=== PATIENT | female | born 1950 | race Caucasian/White ===

== ENCOUNTER → 2020-02-08 11:10 | Outpatient (CLI) | payer OTHER, SELFPAY ==
--- NOTE | ~2020-02-08 | XR_ITS ---
EXAMINATION: XR knee LT 2V DATE: 02/08/2020 11:23 INDICATION: Left knee pain. TECHNIQUE: 2 views of left knee were obtained. COMPARISON: None. FINDINGS: Bone alignment is normal. No fracture. There is moderate osteoarthritis of medial and sharma lofemoral compartments and mild osteoarthritis of lateral compartment. No knee joint effusion. IMPRESSION: 1. Moderate left knee osteoarthritis. Reviewed, dictated and finalized at location A.
== END ==
PROVIDERS: PCP Internal Medicine; Visit Provider Internal Medicine
DX: M17.12 Unilateral primary osteoarthritis, left knee (principal)
CPT/HCPCS: 73560

== ENCOUNTER 2020-03-14 08:19 | Outpatient (CLI) | payer OTHER, SELFPAY ==
[2020-03-14 08:41] LABS: Basophils Percent Auto 0.6 % (0.2-1.2); Eosinophils Absolute Auto 0.2 K/mm3 (0-0.3); Eosinophils Percent Auto 3.2 % (0-4.4); Hematocrit 42.6 % (37.0-47.0); Hemoglobin 13.8 g/dL (12.0-15.0); Immature Granulocyte Absolute 0.01 K/mm3 (0.00-0.031); Immature Granulocyte Percent A 0.2 % (0-0.5); Lymphocytes Percent Auto 27.9 % (18.3-44.2); Mean Corpuscular HGB Conc 32.4 g/dl (32-36); Mean Corpuscular Hemoglobin 28.4 pg (26-34); Mean Corpuscular Volume 87.7 fl (80-100); Mean Platelet Volume 10.3 fl (7.4-10.4); Monocytes Absolute Auto 0.4 K/mm3 (0.1-0.6); Neutrophils Percent Auto 60.1 % (45.5-73.1); Platelet Count Result 185 k/mm3 (150-375); Red Blood Count 4.86 M/mm3 (4.2-5.4); Red Cell Distribution Width 13.2 % (11.5-14.5)
[2020-03-14 08:55] LABS: Alanine Aminotransferase 22 U/L (4-35); Albumin Level 4.1 g/dL (3.5-5.1); Alkaline Phosphatase 70 U/L (38-126); Aspartate Amino Transferase 27 U/L (14-36); Bilirubin,Total 0.2 mg/dL (0.2-1.3); Blood Urea Nitrogen 32 mg/dL (7-17); Calcium 9.3 mg/dL (8.4-10.2); Carbon Dioxide 33 mmol/L (22-30); Chloride 102 mmol/L (98-107); Cholesterol 191 mg/dL (0-200); Estimated Glomerular Filt Rate 49; Glucose 95 mg/dL (65-105); HDL Direct 53 mg/dL; Potassium 3.9 mmol/L (3.4-5.0); Sodium 141 mmol/L (137-145); Triglycerides 66 mg/dL (<150)
[2020-03-14 09:06] LABS: LDL Cholesterol Direct 103 mg/dL
[2020-03-14 09:42] LABS: Vitamin D 25 Hydroxy 59.4 ng/mL
[2020-03-14 10:02] LABS: Hemoglobin A1C 5.4 % (<5.7)
== END 2020-03-14 08:20 | disposition home or self-care (01) ==
PROVIDERS: PCP Internal Medicine; Visit Provider Internal Medicine
DX: I10 Essential (primary) hypertension (principal); E78.5 Hyperlipidemia, unspecified; E55.9 Vitamin D deficiency, unspecified; Z79.899 Other long term (current) drug therapy
CPT/HCPCS: 36415; 80053; 80061; 82306; 83036; 84443; 85025

== ENCOUNTER 2020-03-21 09:58 | Outpatient (CLI) | payer OTHER, SELFPAY ==
--- NOTE | ~2020-03-21 | MM_ITS ---
EXAMINATION: MM screening kranthi BI w letty HISTORY: Screening mammogram TECHNIQUE: Craniocaudal and mediolateral oblique 3-D tomosynthesis images were obtained and synthetic 2-D images were generated. CAD analysis was submitted and interpreted. COMPARISON: 03/02/2019 bilateral digital screening mammogram BREAST PARENCHYMAL COMPOSITION: The breasts are almost entirely fatty. FINDINGS: There is no evidence of suspicious mass, calcification, or architectural distortion to sugg est malignancy in either breast. There has been no suspicious interval change. IMPRESSION: 1. No mammographic evidence of malignancy. 2. Recommend routine screening mammography in one year. BI-RADS Category 1: Negative Reviewed, dictated and finalized at location A.
[2020-03-21 10:49] LABS: Blood Urea Nitrogen 25 mg/dL (7-17); Calcium 9.3 mg/dL (8.4-10.2); Carbon Dioxide 33 mmol/L (22-30); Chloride 98 mmol/L (98-107); Estimated Glomerular Filt Rate > 60; Glucose 82 mg/dL (65-105); Potassium 4.1 mmol/L (3.4-5.0); Sodium 135 mmol/L (137-145)
== END 2020-03-21 09:59 | disposition home or self-care (01) ==
PROVIDERS: PCP Internal Medicine; Visit Provider Obstetrics & Gynecology Gynecology
DX: Z12.31 Encounter for screening mammogram for malignant neoplasm of breast (principal); N17.9 Acute kidney failure, unspecified
CPT/HCPCS: 36415; 77063; 77067; 80048

== ENCOUNTER 2020-09-21 11:48 | Outpatient (CLI) | payer OTHER, SELFPAY ==
[2020-09-21 13:39] LABS: Free T4 Free Thyroxine 0.95 ng/mL (0.78-2.19)
== END 2020-09-21 11:49 | disposition home or self-care (01) ==
PROVIDERS: PCP Internal Medicine; Visit Provider Nurse Practitioner
DX: E04.1 Nontoxic single thyroid nodule (principal)
CPT/HCPCS: 36415; 84439; 84443

== ENCOUNTER 2020-09-27 17:10 | Outpatient (CLI) | payer OTHER, SELFPAY ==
--- NOTE | ~2020-09-27 | US_ITS ---
US thyroid INDICATION: Thyroid nodule TECHNIQUE: Real-time sonographic images of the thyroid gland were obtained. COMPARISON: No prior studies for comparison. FINDINGS: The right thyroid lobe measures 5.9 x 2.8 x 3.1 cm. The left thyroid lobe measures 4.7 x 1 .2 x 1.4 cm. In the right lobe there is a complex mixed solid and cystic, hypoechoic, wider than tall , irregularly marginated mass without definite internal calcifications measuring 4.1 x 3 x 2.3 cm. Th ere is associated internal vascularity, TR 4. In the left lobe there is a 2 mm cyst, benign. IMPRESSION: 1. Complex 4.1 cm right thyroid mass, TR 4, measuring 4.1 x 3 x 2.3 cm. Ultrasound-guided fine-needl e aspiration biopsy recommended. Reviewed, dictated and finalized at location A. IMPRESSION: 1. Complex 4.1 cm right thyroid mass, TR 4, measuring 4.1 x 3 x 2.3 cm. Ultras ound-guided fine-needle aspiration biopsy recommended.
== END 2020-09-27 17:11 | disposition home or self-care (01) ==
PROVIDERS: PCP Internal Medicine; Visit Provider Nurse Practitioner
DX: E04.1 Nontoxic single thyroid nodule (principal)
CPT/HCPCS: 76536

== ENCOUNTER 2021-02-06 09:20 | Outpatient (CLI) | payer OTHER, SELFPAY ==
[2021-02-06 10:03] LABS: Basophils Percent Auto 0.6 % (0.2-1.2); Eosinophils Absolute Auto 0.1 K/mm3 (0-0.3); Eosinophils Percent Auto 1.8 % (0-4.4); Hematocrit 44.2 % (37.0-47.0); Hemoglobin 14.3 g/dL (12.0-15.0); Immature Granulocyte Absolute 0.01 K/mm3 (0.00-0.031); Immature Granulocyte Percent A 0.2 % (0-0.5); Lymphocytes Absolute Auto 1.31 K/mm3 (0.9-3.2); Lymphocytes Percent Auto 26.3 % (18.3-44.2); Mean Corpuscular HGB Conc 32.4 g/dl (32-36); Mean Corpuscular Hemoglobin 28.7 pg (26-34); Mean Corpuscular Volume 88.6 fl (80-100); Mean Platelet Volume 10.3 fl (7.4-10.4); Monocytes Absolute Auto 0.4 K/mm3 (0.1-0.6); Monocytes Percent Auto 8.2 % (2.6-8.5); Neutrophils Absolute Auto 3.1 K/mm3 (1.3-6.7); Neutrophils Percent Auto 62.9 % (45.5-73.1); Platelet Count Result 176 k/mm3 (150-375); Red Blood Count 4.99 M/mm3 (4.2-5.4); Red Cell Distribution Width 13.3 % (11.5-14.5)
[2021-02-06 10:08] LABS: Add Urine Microscopic? YES; Appearance Urine Clear (Clear); Bacteria Urine Trace /hpf; Bilirubin Urine Negative (Negative); Blood Urine Negative (Negative); Color Urine Straw (Yellow); Glucose Urine UA Negative (Negative); Ketones Urine Negative (Negative); Leukocyte Esterase Ur Trace LEU/UL (NEGATIVE); Nitrate Urine Negative (Negative); Protein Urine Negative (Negative); RBC Urine 0-2 /hpf (0-2); Specific Grav Ur 1.014 (1.001-1.035); Squamous Epithelial Cell Urine Occasional /hpf (Few); Urobilinogen Urine Negative mg/dL (<2.0); WBC Urine 0-3 /hpf (0-3)
[2021-02-06 10:18] LABS: Alanine Aminotransferase 21 U/L (4-35); Alkaline Phosphatase 68 U/L (38-126); Anion Gap 3 mmol/L (8-16); Aspartate Amino Transferase 28 U/L (14-36); Bilirubin,Total 0.3 mg/dL (0.2-1.3); Blood Urea Nitrogen 25 mg/dL (7-17); Calcium 9.3 mg/dL (8.4-10.2); Carbon Dioxide 34 mmol/L (22-30); Chloride 103 mmol/L (98-107); Cholesterol 212 mg/dL (0-200); Estimated Glomerular Filt Rate > 60; Glucose 89 mg/dL (65-105); HDL Direct 72 mg/dL; Potassium 3.9 mmol/L (3.4-5.0); Sodium 140 mmol/L (137-145); Triglycerides 64 mg/dL (<150)
[2021-02-06 10:29] LABS: LDL Cholesterol Direct 105 mg/dL
== END 2021-02-06 09:21 | disposition home or self-care (01) ==
PROVIDERS: PCP Internal Medicine; Visit Provider Internal Medicine
DX: E55.9 Vitamin D deficiency, unspecified (principal); E78.5 Hyperlipidemia, unspecified; I10 Essential (primary) hypertension; Z79.899 Other long term (current) drug therapy
CPT/HCPCS: 36415; 80053; 80061; 81001; 82306; 84443; 85025

== ENCOUNTER 2021-03-28 14:37 | Outpatient (CLI) | payer OTHER, SELFPAY ==
--- NOTE | ~2021-03-28 | MM_ITS ---
EXAMINATION: MM screening kranthi BI w letty HISTORY: Screening mammogram TECHNIQUE: Craniocaudal and mediolateral oblique 3-D tomosynthesis images were obtained and synthetic 2-D images were generated. CAD analysis was submitted and interpreted. COMPARISON: No prior mammogram is available for comparison at this institution. BREAST PARENCHYMAL COMPOSITION: The breasts are almost entirely fatty. FINDINGS: There is no evidence of suspicious mass, calcification, or architectural distortion to sugg est malignancy in either breast. There has been no suspicious interval change. IMPRESSION: 1. No mammographic evidence of malignancy. 2. Recommend routine screening mammography in one year. BI-RADS Category 1: Negative Reviewed, dictated and finalized at location A.
== END 2021-03-28 14:38 | disposition home or self-care (01) ==
LOC: ANHIMG 14:39
PROVIDERS: PCP Internal Medicine; Visit Provider Obstetrics & Gynecology Gynecology
DX: Z12.31 Encounter for screening mammogram for malignant neoplasm of breast (principal)
CPT/HCPCS: 77063; 77067

== ENCOUNTER 2021-04-04 10:41 | Outpatient (CLI) | payer OTHER, SELFPAY ==
--- NOTE | ~2021-04-04 | XR_ITS ---
EXAMINATION:XR_CERV2-3V_CR DATE: 04/04/2021 11:03 INDICATION: Neck pain TECHNIQUE: AP, lateral, and odontoid views of the cervical spine are provided. COMPARISON: None FINDINGS: There is 1 mm retrolisthesis of C3 on C4 and C4 on C5. The odontoid is intact. No fracture is identified. The vertebral body heights are maintained. There is mild loss of intervertebral disc s pace height from C3-4 through C6-7. Small degenerative osteophytes project from the anterior endplate s of multiple vertebral bodies. There is mild multilevel facet and uncovertebral joint osteoarthritis . Prevertebral soft tissues are normal. IMPRESSION: 1. Mild cervical spondylosis without acute findings. Reviewed, dictated and finalized at location A.
== END 2021-04-04 10:42 | disposition home or self-care (01) ==
PROVIDERS: PCP Internal Medicine; Visit Provider Internal Medicine
DX: S16.1XXA Strain of muscle, fascia and tendon at neck level, initial encounter (principal); M47.812 Spondylosis without myelopathy or radiculopathy, cervical region
CPT/HCPCS: 72040

== ENCOUNTER 2021-06-21 15:03 | Outpatient (CLI) | payer OTHER, SELFPAY ==
--- NOTE | ~2021-06-21 | XR_ITS ---
XR shoulder LT min 2V DATE: 06/21/2021 15:19 INDICATION: Fall in December. Pain and limited range of motion of left shoulder TECHNIQUE: 4 views COMPARISON: None FINDINGS: Diffuse osteopenia. There is widening of the left glenohumeral joint suggesting some laxity of the shoulder capsule. Normal alignment at the acromioclavicular joint. No fracture, dislocation, periosteal reaction or bone destruction or abnormal soft tissue calcificati on. IMPRESSION: Probable laxity of the shoulder joint with widening of the left glenohumeral joint Osteopenia Reviewed, dictated and finalized at location A. IMPRESSION: Probable laxity of the shoulder joint with widening of the left gle nohumeral joint Osteopenia
== END 2021-06-21 15:04 | disposition home or self-care (01) ==
PROVIDERS: PCP Internal Medicine; Visit Provider Internal Medicine
DX: M85.812 Other specified disorders of bone density and structure, left shoulder (principal); M25.212 Flail joint, left shoulder
CPT/HCPCS: 73030

== ENCOUNTER 2021-09-26 08:38 | Outpatient (CLI) | payer OTHER, SELFPAY ==
--- NOTE | ~2021-09-26 | MR_ITS ---
EXAMINATION: MR shoulder LT wo con DATE: 09/26/2021 10:18 INDICATION: Left shoulder pain. TECHNIQUE: Magnetic resonance imaging (MRI) of the left shoulder was performed without intravenous co ntrast. Sequences included axial PD-weighted FS FSE, coronal oblique PD-weighted FS FSE and T2-weight ed FS FSE, and sagittal oblique T2-weighted FS FSE and T1-weighted FSE. COMPARISON: Left shoulder radiographs 06/21/2021 FINDINGS: Coracoacromial arch: The acromion undersurface is convex in morphology (type IV). There is severe acromioclavicular joint osteoarthritis including inferiorly directed osteophytes. There is mild subacromial/subdeltoid bursit is. Rotator cuff: There is severe supraspinatus and infraspinatus tendinopathy. There is a in the articular sided parti al-thickness tear of distal infraspinatus tendon measuring 6 mm anterior to posterior by 2 mm proxima l to distal by 50% tendon thickness. Teres minor tendon is normal. There is mild subscapularis tendin opathy. There is no asymmetric fatty atrophy of the rotator cuff muscle bellies. Biceps tendon and glenoid labrum: Biceps tendon is in bicipital groove. There is a partial tear of proximal biceps tendon. There is a t ear of glenoid labrum from 11:00 to 3:00 (SLAP tear). Fluid: There is a moderate-sized glenohumeral joint effusion. Bones/cartilage: There is cartilage surface irregularity of glenoid. Humeral head cartilage is normal. IMPRESSION: 1. Articular-sided, partial-thickness rotator cuff tear. 2. Mild glenoid chondrosis. SLAP tear. 3. Partial tear of proximal biceps tendon. 4. Moderate-sized glenohumeral joint effusion. 5. Severe acromioclavicular joint osteoarthritis. 6. Mild subacromial/subdeltoid bursitis. Reviewed, dictated and finalized at location A.
== END 2021-09-26 08:39 | disposition home or self-care (01) ==
PROVIDERS: PCP Internal Medicine; Visit Provider Orthopaedic Surgery
DX: M19.012 Primary osteoarthritis, left shoulder (principal); M75.52 Bursitis of left shoulder; M25.412 Effusion, left shoulder; S43.432A Superior glenoid labrum lesion of left shoulder, initial encounter; X58.XXXA Exposure to other specified factors, initial encounter
CPT/HCPCS: 73221

== ENCOUNTER 2021-11-19 16:26 | Outpatient (CLI) | payer OTHER, SELFPAY | END 2021-11-19 16:27 | disposition home or self-care (01) | LOC: ANHLAB 16:33 | PROVIDERS: PCP Internal Medicine | DX: E04.1 Nontoxic single thyroid nodule (principal) | CPT/HCPCS: 36415; 84443 ==

== ENCOUNTER 2021-12-13 07:56 | Outpatient (CLI) | payer OTHER, SELFPAY ==
--- NOTE | 2021-12-13 08:00 | ECG_ITS ---
Measurements Intervals [place] Rate: 64 P: 45 FL: 199 QRS: -43 QRSD: 118 T: 6 QT: 404 QTc: 417 Interpretive Statements SINUS RHYTHM LEFT AXIS DEVIATION POOR R WAVE PROGRESSION, ANTERIOR LEADS BORDERLINE T WAVE ABNORMALITY- INFERIOR LEADS BASELINE ARTIFACT- I, II, III, AVR, AVL, AVF BORDERLINE ECG Electronically Signed On 12-13-2021 8:14:57 ELECTRIFIER OPERATOR by Aj Ferguson D.O.
[2021-12-13 08:34] LABS: Anion Gap 5 mmol/L (8-16); Blood Urea Nitrogen 25 mg/dL (7-17); Calcium 9.5 mg/dL (8.4-10.2); Carbon Dioxide 32 mmol/L (22-30); Chloride 102 mmol/L (98-107); Estimated Glomerular Filt Rate > 60; Glucose 90 mg/dL (65-110); Potassium 3.7 mmol/L (3.4-5.0); Sodium 139 mmol/L (137-145)
== END 2021-12-13 07:57 | disposition home or self-care (01) ==
LOC: ANHSURGERY 08:00
PROVIDERS: Anesthesiology; PCP Internal Medicine; Visit Provider Orthopaedic Surgery
DX: Z01.818 Encounter for other preprocedural examination (principal); I10 Essential (primary) hypertension
CPT/HCPCS: 36415; 80048; 93005

== ENCOUNTER 2021-12-17 00:19 | Day surgery (SDC) | payer OTHER, SELFPAY ==
[2021-12-12 11:31] VITALS: BMI 31.8
--- NOTE | 2021-12-12 11:37 | PC.NURSE ---
Report to the Outpatient Waiting Room, entrance under the green pavilion located off [facility], at time _0830 on date __12/17/21 . OR Time: __1030 . - You and your visitor will be asked a series of questions to screen for COVID 19 for your protection. - A mask is required within the hospital. - Only one visitor is allowed at this time. Patient visitors will be guided where to wait when not with patient. Preoperative COVID Testing Requirements: No COVID Test needed if: (proof is required; if not received patient will have Rapid Test prior to entry) - Patient has received COVID Vaccine at least 14 days prior to procedure date or - Patient has positive COVID test result within last 90 days of surgery date. COVID Test needed if above criteria is not met If not COVID vaccinated a COVID test must be conducted within 72 hours of surgery and patient is asked to isolate self from time of testing until procedure. You will go to the [facility] for your COVID testing. The [facility] site is located at the corner of [address] [facility]. You will only be called if COVID results are positive and your surgeon may reschedule your elective surgery date. Patients may have clear liquids (water, carbonated beverages, clear teas, apple juice) until 3 hours prior to surgery with a maximum of 20 ounces. - No food from midnight until time of surgery - Infants may have breast milk until 4 hours before surgery, formula 6 hours prior to surgery. - Children will be allowed to drink immediately following surgery. If applicable, please bring a bottle or sippy cup to assist with drinking. Juice, water, soda, and popsicles are readily available. For infants on formula, please bring formula the day of surgery. Pacifiers are allowed. Take the following medications with a SIP of water the morning of surgery: NONE Medications to discontinue per physician ALL VITAMINS AND SUPPLEMENTS 3 DAYS PRE OP Date to take last dose__12/13/21 Please no make-up, nail setswana, hairspray, perfume, deodorant, or body powder the day of surgery. No jewelry (including any body piercings) or valuables the day of surgery, leave them at home. Please take a shower or bath the night before, or the morning of, surgery with an antibacterial soap. Wear comfortable, loose fitting clothing. Children are encouraged to wear pajamas. - Jewelry must be removed prior to entering the operating room. Rings and piercings that are not removed may be cut off. - The hospital will not accept responsibility for valuables. - Please leave all valuables, including medications, at home the day of surgery. If you are going home after surgery, a licensed taxi driver supervisor must drive you home. - NO public transportation without another adult. - We recommend that an adult stay with you for 24 hours following discharge. - We also recommend that you do not drive, make important decision, drink alcoholic beverages, or take any drugs that were not prescribed by your health care provider for at least 24 hours after your discharge time. For Pediatric surgeries, we recommend two adults accompany the child home (only one inside the building at this time). Follow any additional instructions given to you from your surgeon. Telephone instructions given to ___PATIENT and asked if any additional questions and then verbalized understanding. Patient advised to call surgeon office or pre surgery nurse liaison [phone] if any additional questions.
[2021-12-17] VITALS (7 sets, daily range): BP systolic 111–127; BP diastolic 49–62; PULSE 59–110; RESP 16–19; TEMP 36.3–36.6; O2SAT 92–100
--- NOTE | 2021-12-17 08:19 | WPDANESEPPF ---
Anes - Initial Pre Proc Eval Procedure: Operation Date: 12/17/21 10:30 Proposed Procedures p Left Open Rotator Cuff Repair, Distal Clavicle Excision - Sandip Wilson MD <Padilla Rodriges MD - Last Filed: 12/17/21 10:44> Date/Time: 12/17/21 08:19 <Padilla Rodriges MD - Last Filed: 12/17/21 10:44> Surgeon: Sandip Wilson MD <Padilla Rodriges MD - Last Filed: 12/17/21 10:44> Pre Op Diagnosis: left rotator cuff tear, ac arthritis <Padilla Rodriges MD - Last Filed: 12/17/21 10:44> Patient Data Age: 71 Gender: F Height: 1.68 m Weight: 89.4 kg <Padilla Rodriges MD - Last Filed: 12/17/21 10:44> Allergies Allergy/AdvReac Type Severity Reaction Status Date / Time codeine Allergy Intermediate hives Verified 12/17/21 08:50 <Padilla Rodriges MD - Last Filed: 12/17/21 10:44> Home Medications Medication Instructions Recorded Confirmed Type antiarthritic combination no.2 900 900 mg PO DAILY 03/07/20 12/17/21 History mg tablet naproxen sodium 220 mg tablet 220 mg PO DAILY PRN tablet 08/10/20 12/17/21 History hydrochlorothiazide 25 mg tablet 25 mg PO DAILY #90 tablet 02/08/21 12/17/21 Rx multivitamin 1 tablet PO DAILY 02/27/21 12/17/21 History omega-3 fatty acids 1,000 mg 1,000 mg PO DAILY 04/04/21 12/17/21 History capsule <Padilla Rodriges MD - Last Filed: 12/17/21 10:44> Patient hx anesthesia problems: none <Rudi Urias DO - Last Filed: 12/17/21 09:52> Family hx anesthesia problems: none <Rudi Urias DO - Last Filed: 12/17/21 09:52> Results Review: All pre-operative results and documents have been reviewed as part of the pre-operative evaluation. <Padilla Rodriges MD - Last Filed: 12/17/21 10:44> PMFSH Past Medical History Medical History: Medical History (Updated 12/17/21 @ 08:20 by Padilla Rodriges MD) Anemia Cervical radiculopathy Dyslipidemia Essential hypertension Gastroesophageal reflux disease without esophagitis Meniere's disease of right ear Obesity (BMI 30.0-34.9) Right rotator cuff tear Thyroid mass <Padilla Rodriges MD - Last Filed: 12/17/21 10:44> Surgical History Surgical History: Surgical History History of total right knee replacement May 2009- Trigger 2007-Dr. Wilson <Padilla Rodriges MD - Last Filed: 12/17/21 10:44> Family History Family History: Family History Father Family history of Parkinson's disease Hypertension Heart disease Mother Hypertension Diabetes mellitus Cerebrovascular accident Grandparent Hypertension Cerebrovascular accident Heart disease Unknown Hypertension Cancer Other Family history of cardiovascular disease Family history of lymphoma <Padilla Rodriges MD - Last Filed: 12/17/21 10:44> Social History Social History: Social History Smoking packs per day: 2.5 Smoking cigarettes per day: 50.0 Years smoked: 13 Smoking pack-years: 32.50 Tobacco type: cigarettes Second hand tobacco smoke exposure: No Smoking end date: 12/01/79 Alcohol intake: current Drinks per week: 2 Alcohol use details: Occasional Living arrangements: with family Additional living arrangements comments: Joby Solo-Son Gender identity (if verbalized by the patient): Female Spiritual care concerns: No <Padilla Rodriges MD - Last Filed: 12/17/21 10:44> Anes - Eval Final PreProcedure Day of Procedure 12/17/21 08:19 <Padilla Rodriges MD - Last Filed: 12/17/21 10:44> Patient weight: obese <Padilla Rodriges MD - Last Filed: 12/17/21 10:44> Heart: regular rate and rhythm <Padilla Rodriges MD - Last Filed: 01/17/22 10:44> Lungs: clear to auscultation and normal air movement <Padilla Rodriges MD - Last
--- NOTE | 2021-12-17 08:21 | WPDANESPNB ---
Anes - Peripheral Nerve Block Date/Time: 12/17/21 08:21 I have discussed with the patient/family/POA the placement of a peripheral nerve block for post-operative pain management, including associated risks, benefits, complications, and side effects. Alternative methods of post-operative analgesia were detailed. Questions were solicited and answers provided to the satisfaction of the patient/family/POA. Time-Out: A pre-procedural Time-Out was completed immediately before starting the procedure and confirmed: Patient Identification, Site, Procedure, Patient Position and the Availability of Requisite Equipment. Clinical Indications: Acute post-operative pain management requested by the operative surgeon. Nerve Block Insertion Note Anes-nerve block: supraclavicular Patient position: supine Skin prep: chlorhexidine Needle: 22 gauge, stimulating, insulated echogenic needle. Needle length: 80 mm Technique: ultrasound (in plane) Injectate: bupivacaine 0.5% with epi 5 mcg/ml (20cc) Observations: tolerated well Complications: none Procedure start time:: 1040 Procedure end time:: 104
[2021-12-17] MEDS: ACETAMINOPHEN 500 MG TABLET 1000 MG PO (08:58)
[2021-12-17] MEDS: LACTATED RINGERS 1,000 ML 30 ML IV CONT ×2 (09:50→13:02)
[2021-12-17] MEDS: KETOROLAC 15 MG/ML VIAL (*BKC) IV PUSH (09:51)
--- NOTE | 2021-12-17 10:00 | WPDHPUPDATE1 ---
History and Physical Update Update Date/Time: 12/17/21 10:00 History and Physical has been reviewed, including an updated exam of the patient. There are NO changes in the patient's condition. Risks, benefits, and alternatives have been discussed and questions answered. Patient agrees to proceed with procedure.
[2021-12-17] MEDS: ceFAZolin 2 GM/D5W 50 ML 2 GM/50 ML BAG IVPB (10:51)
[2021-12-17] MEDS: BUPIVACAINE/EPINEPHRINE 0.25% 10 ML VIAL INFILTRATE (11:26)
--- NOTE | 2021-12-17 12:17 | P.OP_ITS ---
Procedure Note - Detailed Date of Procedure 12/17/21 Pre-op Diagnosis left rotator cuff tear, ac arthritis Post-op Diagnosis same Procedure Performed Left rotator cuff repair with distal clavicle excision Surgeon Sandip Wilson MD Air Conditioning Unit Assembler Shaneka Anesthesia general and regional Description of Procedure Patient was identified and proper site identified. In the preop holding area the anesthesia team performed a left upper extremity block. She was then taken to the operating room and transferred to the or table taking care to pad the torso and extremities. After general anesthetic induction and intubation, she was put in a semi beach chair position in the usual manner for a left shoulder procedure. Her head was secured taking care to neither rotate nor extend the head and neck. The left upper extremity was prepped and draped free in usual sterile fashion. The subcutaneous tissue in the area of the incision was injected with 10 cc of 0.25% Marcaine and epinephrine solution. An oblique anterior incision was made extending from the AC joint distally in line with the fibers of the deltoid. Subcutaneous tissue was sharply dissected down to the deltoid fascia. The deltoid was dissected off the anterior portion of the acromion in the distal end of the clavicle. A 2 cm split was made at the junction between the anterior and middle thirds of the deltoid. Using the microsagittal saw the last 8 mm of clavicle removed. The saw was also used to perform the acromioplasty and then the undersurface of the acromion was rasped smooth. Thickened bursa was sharply debrided like inspection of the rotator cuff. There was a thinned area corresponding to what was seen on the MRI at the midportion of the greater tuberosity. This was completed and the tendon edges were freshened up. Tuberosity was prepared for the repair. This is carried out with 2. Ethibond suture passed through a bony bridge. There was an erosive area directly overlying the biceps tendon. The rotator interval was opened at that point for to allow for inspection of the biceps tendon. Although there was quite a bit of fluid, and was able to be delivered up into the opening in inspected. Other than little bit of flattening, it was in good condition. The rotator interval incision was reapproximated with 2. Vicryl suture. Overall this gave a hurtado repair which was stable as the shoulder was taken through range of motion. The wound was irrigated with sterile NaCl solution. The deltoid was repaired back to the acromion with 2. Ethibond suture passed through bone and the remainder of the deltoid repair carried out with 2. Vicryl. Subcutaneous tissue was reapproximated with 2. Strata fix and then tissue adhesive used for the skin. Sterile dressing was applied. There were no known intraoperative complications, and perioperative antibiotics were administered. Estimated Blood Loss 15 Drains No Packing No Pathology none sent Complications No immediate complications Condition stable Disposition PACU
[2021-12-17] MEDS: ONDANSETRON INJ 4 MG/2 ML VIAL IV PUSH (12:43)
[2021-12-17] MEDS: SCOPOLAMINE 1.5 MG PATCH TRANSDERM (12:51)
== END 2021-12-17 14:10 | disposition home or self-care (01) ==
PROVIDERS: PCP Internal Medicine; Visit Provider Orthopaedic Surgery
PROC: (CPT 23420; principal; 2021-12-17 10:30)
DX: M75.102 Unspecified rotator cuff tear or rupture of left shoulder, not specified as traumatic (principal); M19.012 Primary osteoarthritis, left shoulder; G89.18 Other acute postprocedural pain; S43.432A Superior glenoid labrum lesion of left shoulder, initial encounter; S46.212A Strain of muscle, fascia and tendon of other parts of biceps, left arm, initial encounter; M25.412 Effusion, left shoulder; M75.52 Bursitis of left shoulder; D64.9 Anemia, unspecified; M54.12 Radiculopathy, cervical region; I10 Essential (primary) hypertension; E78.5 Hyperlipidemia, unspecified; K21.9 Gastro-esophageal reflux disease without esophagitis; E04.9 Nontoxic goiter, unspecified; F17.210 Nicotine dependence, cigarettes, uncomplicated; E66.9 Obesity, unspecified; Z68.32 Body mass index [BMI] 32.0-32.9, adult
CPT/HCPCS: 23412; 64415; 23120; 36415; 80048; 93005; A4565; A9270; J0690; J1885; J2405; J3010; J7120

== ENCOUNTER → 2021-12-21 07:07 | Outpatient (CLI) | payer OTHER, SELFPAY ==
[2021-12-21 21:56] LABS: SARS-CoV-2 RNA PCR Negative
== END ==
PROVIDERS: PCP Internal Medicine; Visit Provider Internal Medicine
DX: Z20.822 Contact with and (suspected) exposure to COVID-19 (principal)
CPT/HCPCS: C9803; U0003; U0005

== ENCOUNTER 2022-02-07 11:00 | Outpatient (RCR) | payer OTHER, SELFPAY ==
--- NOTE | 2021-12-19 09:18 | PTOPEVAL ---
PHYSICAL THERAPY EVALUATION AND PLAN OF CARE Thank you for referring Natalia Solo to [facility].? The patient is scheduled to be seen for therapy? 2x/week for 4 weeks. Please review, sign, date and return this plan of care MERLYN. I agree with and certify that the following plan of care is medically necessary. Referring Physician Date Attending Provider: Sandip Wilson MD Evaluation Diagnosis left rotator cuff repair Onset 12/17/21 Subjective Information States she is doing ok this Query Text:As Reported By Patient/ morning. Did find a somewhat Family comfortable position to sleep. States that the pain is improving over time. Self Report Pain Assessment Left Shoulder(s) Reported Pain Level 7 Pain Description Incisional,Throbbing,Tightness Pain Frequency Acute,Continuous Lowest Pain Intensity 5 Greatest Pain Intensity 8 Pain Aggravating Factors Procedure or Surgery Pain Score Pain Score 7: Self Report Interventions Used Interventions Used By Clinicians Ice Pain Relief Interventions Used By Ice,Medication Patient Upper Extremity Range of Motion General Upper Extremity Range of Motion Reason Not Measured WNL/Right Scapular/ Shoulder Range of Motion Left Shoulder Flexion - Passive 80 Shoulder Adduction - Active 75 Shoulder Lateral Rotation - Passive 30 Manual Therapy Manual Therapy Side Left Manual Therapy Location Shoulder Patient Position Supine Treatment Comments PROM of left shoulder to Query Text:Include Technique and scaption, abduction, and Result of Technique external rotation PT Clinical Summary Natalia is a 71 yo female presenting to outpatient physical therapy 2 days s/p left rotator cuff repair. She is doing well today with clean appearing bandage over incision site. She has been taking the sling off at home and I reinforced limited shoulder activity keeping the arm down by her side and using only the lower part of her arm for the first 2 weeks. She will require skilled physical therapy to provide passive ROM and to provide education as we progress through rehabilitation process.
[2022-01-16 11:29] VITALS: BP_SYST 145
--- NOTE | 2022-01-16 11:57 | PTOPEVAL ---
PHYSICAL THERAPY PROGRESS REPORT Thank you for referring Natalia Solo to [facility].? The patient is scheduled to be seen for therapy?2x/week for 3 weeks. Please review, sign, date and return this plan of care MERLYN. I agree with and certify that the following plan of care is medically necessary. Referring Physician Date Attending Provider: Sandip Wilson MD Progress Diagnosis left rotator cuff repair Onset 12/17/21 Subjective Information States that she feels like she Query Text:As Reported By Patient/ is doing well. More recently Family there has been more pain in the left shoulder but she has also been doing more activity and using the arm. Using Tylenol for pain. Self Report Pain Assessment Left Shoulder(s) Reported Pain Level 4 Pain Description Aching,Tightness Pain Frequency Acute,Continuous Pain Score Pain Score 4: Self Report Interventions Used Interventions Used By Clinicians Exercise,Ice,Manual Therapy Techniques Pain Relief Interventions Used By Ice,Medication Patient Upper Extremity Range of Motion Scapular/ Shoulder Range of Motion Left Shoulder Flexion - Active 111 Shoulder Flexion - Passive 145 Shoulder Abduction - Passive 145 Shoulder Medial Rotation - Active L5 Query Text:Reach Behind the Back Shoulder Lateral Rotation - Active 47 Shoulder Lateral Rotation - Passive 65 Upper Extremity Muscle Strength Testing Scapular/Shoulder Left Shoulder Flexion Strength 3- Fair - Shoulder Abduction Strength 3- Fair - Shoulder Medial Rotation Strength 4 Good Shoulder Lateral Rotation Strength 3+ Fair + PT Clinical Summary Natalia is a 71 yo female presenting to outpatient physical therapy 4 weeks s/p left rotator cuff repair. Natalia is doing very well and progressing nicely through rehabilization protocol. We started theraband exercises today and she tolerated well. We will address gentle strengthening until she has full AROM and then we will address return to normal strength. PT Services Indicated Yes Rehabilitation Potential Good Potential Barriers to Goal Achievements None Support Requirements For Optimal None [facility] Patient/Caregiver Informe
--- NOTE | 2022-01-24 08:16 | PCPTNOTE ---
Patient called & cancelled scheduled appointment this date due to bad weather.
[2022-02-07 11:05] VITALS: BP_SYST 159
--- NOTE | 2022-02-07 11:30 | PTOPEVAL ---
PHYSICAL THERAPY DISCHARGE NOTE Thank you for referring Natalia Solo to [facility]. Please review, sign, date and return this plan of care MERLYN. I agree with and certify that the following plan of care is medically necessary. Referring Physician Date Attending Provider: Sandip Wilson MD Discharge Diagnosis left rotator cuff repair Onset 12/17/21 Subjective Information Overall the pain is very Query Text:As Reported By Patient/ minimal and has had some Family really good days. Overall function is improving quite well and she can put on her make up and do her hair and reach to high shelves with a little wieght. Self Report Pain Assessment Left Shoulder(s) Reported Pain Level 2 Pain Description Aching Pain Score Pain Score 2: Self Report Interventions Used Interventions Used By Clinicians Exercise,Ice Pain Relief Interventions Used By Ice,Medication Patient Upper Extremity Range of Motion Scapular/ Shoulder Range of Motion Left Shoulder Flexion - Active 155 Shoulder Abduction - Passive 159 Shoulder Medial Rotation - Active T12 Query Text:Reach Behind the Back Shoulder Lateral Rotation - Active 75 Upper Extremity Muscle Strength Testing Scapular/Shoulder Left Shoulder Flexion Strength 5 Normal Shoulder Abduction Strength 5 Normal Shoulder Medial Rotation Strength 5 Normal Shoulder Lateral Rotation Strength 5 Normal Elbow/Forearm Left Elbow Flexion Strength 5 Normal Elbow Extension Strength 5 Normal PT Clinical Summary Natalia is 7 weeks s/p left rotator cuff repair. She demonstrates normal shoulder ROM and normal shoulder strength. She is independent and confident in HEP and understands strategy to progress her activity level. We will d/c form PT at this time. PT Services Indicated Yes Rehabilitation Potential Good Potential Barriers to Goal Achievements None Support Requirements For Optimal None Tate Patient/Caregiver Informed of Benefits/ Yes Risks of Rehabilitation Patient/Caregiver Participated in Plan Yes of Care Patient/Caregiver Agreed with Problem Yes List/POC/Goals
== END 2022-02-07 16:04 | disposition home or self-care (01) ==
LOC: ANHPT 11:00
PROVIDERS: PCP Internal Medicine; Referring Provider Orthopaedic Surgery; Visit Provider Orthopaedic Surgery
DX: Z48.89 Encounter for other specified surgical aftercare (principal); M75.102 Unspecified rotator cuff tear or rupture of left shoulder, not specified as traumatic
CPT/HCPCS: 97110; 97140; 97162

== ENCOUNTER → 2022-03-08 01:28 | Outpatient (CLI) | payer OTHER, SELFPAY ==
[2022-03-08 13:29] LABS: Influenza A QL RT-PCR Negative (Negative); Influenza B QL RT-PCR Negative (Negative); SARS-CoV-2 RNA PCR Negative
== END ==
PROVIDERS: PCP Internal Medicine; Visit Provider Internal Medicine
DX: Z20.822 Contact with and (suspected) exposure to COVID-19 (principal)
CPT/HCPCS: 87502; C9803; U0003; U0005

== ENCOUNTER 2022-03-14 08:18 | Outpatient (CLI) | payer OTHER, SELFPAY ==
[2022-03-14 08:39] LABS: Basophils Absolute Auto 0.1 K/mm3 (0.0-0.1); Basophils Percent Auto 0.9 % (0.2-1.2); Eosinophils Absolute Auto 0.1 K/mm3 (0-0.3); Eosinophils Percent Auto 2.2 % (0-4.4); Hematocrit 46.4 % (37.0-47.0); Hemoglobin 14.8 g/dL (12.0-15.0); Immature Granulocyte Absolute 0.01 K/mm3 (0.00-0.031); Immature Granulocyte Percent A 0.2 % (0-0.5); Lymphocytes Percent Auto 28.9 % (18.3-44.2); Mean Corpuscular HGB Conc 31.9 g/dl (32-36); Mean Corpuscular Hemoglobin 28.7 pg (26-34); Mean Corpuscular Volume 89.9 fl (80-100); Mean Platelet Volume 9.7 fl (7.4-10.4); Monocytes Absolute Auto 0.5 K/mm3 (0.1-0.6); Monocytes Percent Auto 8.7 % (2.6-8.5); Neutrophils Absolute Auto 3.3 K/mm3 (1.3-6.7); Neutrophils Percent Auto 59.1 % (45.5-73.1); Platelet Count Result 202 k/mm3 (150-375); Red Blood Count 5.16 M/mm3 (4.2-5.4); Red Cell Distribution Width 13.2 % (11.5-14.5); White Blood Count 5.5 K/mm3 (4.5-10.0)
[2022-03-14 08:47] LABS: Alanine Aminotransferase 22 U/L (4-35); Albumin Level 4.3 g/dL (3.5-5.1); Alkaline Phosphatase 69 U/L (38-126); Anion Gap 5 mmol/L (8-16); Aspartate Amino Transferase 30 U/L (14-36); Bilirubin,Total 0.3 mg/dL (0.2-1.3); Blood Urea Nitrogen 23 mg/dL (7-17); Calcium 9.1 mg/dL (8.4-10.2); Carbon Dioxide 32 mmol/L (22-30); Chloride 102 mmol/L (98-107); Cholesterol 253 mg/dL (0-200); Estimated Glomerular Filt Rate > 60; Glucose 93 mg/dL (65-110); HDL Direct 73 mg/dL; Potassium 3.8 mmol/L (3.4-5.0); Sodium 139 mmol/L (137-145); Triglycerides 100 mg/dL (<150)
[2022-03-14 08:59] LABS: LDL Cholesterol Direct 116 mg/dL
[2022-03-14 10:18] LABS: Vitamin D 25 Hydroxy 40.9 ng/mL
== END 2022-03-14 08:19 | disposition home or self-care (01) ==
LOC: ANHLAB 08:19
PROVIDERS: PCP Internal Medicine; Visit Provider Internal Medicine
DX: E55.9 Vitamin D deficiency, unspecified (principal); I10 Essential (primary) hypertension; E78.2 Mixed hyperlipidemia
CPT/HCPCS: 36415; 80053; 80061; 82306; 84443; 85025

== ENCOUNTER 2022-04-03 11:43 | Outpatient (CLI) | payer OTHER, SELFPAY ==
--- NOTE | ~2022-04-03 | MM_ITS ---
EXAMINATION: MM screening krnathi BI w letty HISTORY: Screening mammogram TECHNIQUE: Craniocaudal and mediolateral oblique 3-D tomosynthesis images were obtained and synthetic 2-D images were generated. CAD analysis was submitted and interpreted. COMPARISON: March 28, 2021, March 21, 2020, March 02, 2019 bilateral screening mammogram examinations BREAST PARENCHYMAL COMPOSITION: There are scattered areas of fibroglandular density. FINDINGS: There is no evidence of suspicious mass, calcification, or architectural distortion to sugg est malignancy in either breast. There has been no suspicious interval change. IMPRESSION: 1. No mammographic evidence of malignancy. 2. Recommend routine screening mammography in one year. BI-RADS Category 1: Negative. Reviewed, dictated and finalized at location A.
== END 2022-04-03 11:44 | disposition home or self-care (01) ==
LOC: ANHIMG 11:45
PROVIDERS: PCP Internal Medicine; Visit Provider Nurse Practitioner
DX: Z12.31 Encounter for screening mammogram for malignant neoplasm of breast (principal)
CPT/HCPCS: 77063; 77067

== ENCOUNTER 2022-04-24 14:10 | Outpatient (CLI) | payer OTHER, SELFPAY | END 2022-04-24 14:11 | disposition home or self-care (01) | PROVIDERS: PCP Internal Medicine | DX: E04.1 Nontoxic single thyroid nodule (principal) | CPT/HCPCS: 36415; 84443 ==